=== PATIENT | female | born 1945 | race Two or more races ===

== ENCOUNTER 2016-09-25 08:45 | Outpatient (RCR) | payer OTHER | END 2016-10-22 | disposition home or self-care (01) | LOC: PTY 08:45 | DX: M54.31 Sciatica, right side (principal) | CPT/HCPCS: 97035; 97110; 97140; G0283 ==

== ENCOUNTER 2016-10-30 08:23 | Outpatient (RCR) | payer OTHER | END 2016-11-19 | disposition home or self-care (01) | LOC: PTY 08:23 | DX: M54.31 Sciatica, right side (principal) | CPT/HCPCS: 97035; 97110; 97140; G0283 ==

== ENCOUNTER 2016-11-27 07:30 | Outpatient (RCR) | payer OTHER | END 2016-12-20 | disposition home or self-care (01) | LOC: PTY 07:30 | DX: M54.31 Sciatica, right side (principal) | CPT/HCPCS: 97035; 97110; 97140; G0283 ==

== ENCOUNTER 2016-12-25 08:30 | Outpatient (RCR) | payer OTHER | END 2017-01-19 | disposition home or self-care (01) | LOC: PTY 08:30 | DX: M54.31 Sciatica, right side (principal) | CPT/HCPCS: 97035; 97110; 97140; G0283 ==

== ENCOUNTER 2017-05-21 08:32 | Outpatient (RCR) | payer OTHER | END 2017-05-22 | disposition home or self-care (01) | LOC: PTY 08:32 | DX: M79.605 Pain in left leg (principal); M54.31 Sciatica, right side | CPT/HCPCS: 97035; 97110; 97140; 97161; G0283 ==

== ENCOUNTER 2017-05-28 08:04 | Outpatient (RCR) | payer OTHER | END 2017-06-21 | disposition home or self-care (01) | LOC: PTY 08:04 | DX: M79.605 Pain in left leg (principal); M54.31 Sciatica, right side ==

== ENCOUNTER 2017-06-18 07:27 | Outpatient (RCR) | payer OTHER | END 2017-06-21 | disposition home or self-care (01) | LOC: PTY 07:27 | DX: M79.605 Pain in left leg (principal) | CPT/HCPCS: 97035; 97110; G0283 ==

== ENCOUNTER 2017-07-16 07:58 | Outpatient (RCR) | payer OTHER | END 2017-07-22 | disposition home or self-care (01) | LOC: PTY 07:58 | DX: M79.605 Pain in left leg (principal) | CPT/HCPCS: 97110; 97140; G0283 ==

== ENCOUNTER 2017-08-20 08:25 | Outpatient (RCR) | payer OTHER | END 2017-08-21 | disposition home or self-care (01) | LOC: PTY 08:25 | DX: M79.605 Pain in left leg (principal) | CPT/HCPCS: 97110; 97140; G0283 ==

== ENCOUNTER 2017-09-03 08:15 | Outpatient (RCR) | payer OTHER | END 2017-09-21 | disposition home or self-care (01) | LOC: PTY 08:15 | DX: M79.605 Pain in left leg (principal) ==